=== PATIENT | male | born 2000 | race Caucasian/White ===

== ENCOUNTER 2018-04-10 22:12 | Emergency (ER) | payer OTHER ==
[~2018-04-10] VITALS: Ht 172.7 cm; Wt 93.0 kg
[2018-04-10 22:49] LABS: ABSOLUTE BASOPHILS 0.1 thou/uL (0.0-0.2); ABSOLUTE EOSINOPHILS 0.6 thou/uL (0.0-0.7); ABSOLUTE LYMPHOCYTES 1.5 thou/uL (0.8-5.3); ABSOLUTE MONOCYTES 1.1 thou/uL (0.0-1.2); ABSOLUTE NEUTROPHILS 6.6 thou/uL (1.6-8.1); BASOPHILS 0.7 %; EOSINOPHILS 5.9 %; HEMATOCRIT 43.7 % (42.0-52.0); LYMPHOCYTES 14.9 %; MCH 28.5 pg (26.0-34.0); MCHC 34.4 g/dL (28.0-37.0); MONOCYTES 11.3 %; MPV 7.8 fl. (7.2-11.1); NUCLEATED RBCS 0 /100WBC; PLATELET COUNT* 276 thou/uL (150-400); POLYS 67.2 %; RBC 5.27 mil/uL (4.50-6.00); WBC 9.9 thou/uL (4.0-11.0)
[2018-04-10 22:53] LABS: CALCIUM 9.3 mg/dL (8.5-10.1); POTASSIUM 3.8 mmol/L (3.5-5.1)
[2018-04-10 22:58] LABS: ALBUMIN 4.3 g/dL (3.4-5.0); TOTAL BILIRUBIN 0.5 mg/dL (<0.1-1.0); TOTAL PROTEIN 8.2 g/dL (6.4-8.2)
[2018-04-10] MEDS ORDERED: ZPAK PO (23:33)
[2018-04-10] MEDS ORDERED: VENTOLIN HFA INH8 GM INH (23:54)
[2018-04-11] VITALS: BP 121/80
== END 2018-04-11 00:04 | disposition home or self-care (01) ==
LOC: M.ERS 22:12
PROVIDERS: Nurse Practitioner
DX: R51 Headache (principal); Z90.49 Acquired absence of other specified parts of digestive tract; Z87.891 Personal history of nicotine dependence

== ENCOUNTER 2018-07-24 00:12 | Emergency (ER) | payer OTHER ==
[~2018-07-24] VITALS: Ht 172.7 cm; Wt 96.2 kg
[~2018-07-24 00:12] MED LIST: VENTOLIN HFA INH8 GM INH; ZPAK PO
[2018-07-24 00:20] VITALS: BP 135/72
[2018-07-24] MEDS ORDERED: LIDOCAINE VISC100 ML PO (00:25)
[2018-07-24] MEDS ORDERED: ACETAMINOPHEN-1 EAC1 PO (00:25)
[2018-07-24] MEDS ORDERED: AMOXICILLIN 50500 MG PO (00:25)
[2018-07-24] MEDS ORDERED: IBUPROFEN 800800 MG PO (00:26)
== END 2018-07-24 00:36 | disposition home or self-care (01) ==
LOC: M.ERS 00:12
DX: S02.5XXA Fracture of tooth (traumatic), initial encounter for closed fracture (principal); Z87.891 Personal history of nicotine dependence; Z90.49 Acquired absence of other specified parts of digestive tract; X58.XXXA Exposure to other specified factors, initial encounter; Y93.89 Activity, other specified; Y92.89 Other specified places as the place of occurrence of the external cause; Y99.8 Other external cause status

== ENCOUNTER 2019-01-21 20:30 | Emergency (ER) | payer OTHER ==
[~2019-01-21] VITALS: Ht 172.7 cm; Wt 93.0 kg
[~2019-01-21 20:30] MED LIST changes: +ACETAMINOPHEN-1 EAC1 PO; +AMOXICILLIN 50500 MG PO; +IBUPROFEN 800800 MG PO; +LIDOCAINE VISC100 ML PO
[2019-01-21 20:56] LABS: ABSOLUTE BASOPHILS 0.1 thou/uL (0.0-0.2); ABSOLUTE EOSINOPHILS 0.1 thou/uL (0.0-0.7); ABSOLUTE LYMPHOCYTES 1.1 thou/uL (0.8-5.3); ABSOLUTE MONOCYTES 1.2 thou/uL (0.0-1.2); ABSOLUTE NEUTROPHILS 4.4 thou/uL (1.6-8.1); BASOPHILS 0.8 %; HEMATOCRIT 42.5 % (42.0-52.0); HEMOGLOBIN 14.5 gm/dL (14.0-18.0); LYMPHOCYTES 15.5 %; MCH 28.7 pg (26.0-34.0); MCHC 34.2 g/dL (28.0-37.0); MCV 83.9 fL (80.0-100.0); MONOCYTES 17.5 %; MPV 8.3 fl. (7.2-11.1); NUCLEATED RBCS 0 /100WBC; PLATELET COUNT* 244 thou/uL (150-400); POLYS 64.2 %; RBC 5.07 mil/uL (4.50-6.00); RDW-CV 12.7 % (10.5-14.5); WBC 6.8 thou/uL (4.0-11.0)
[2019-01-21] MEDS ORDERED: ZOFRAN ODT4 MG PO ×3 (21:00→21:08)
[2019-01-21] MEDS ORDERED: IBUPROFEN 600600 M1 PO ×3 (21:00→21:08)
[2019-01-21] MEDS ORDERED: KEFLEX500 M1 PO (21:01)
[2019-01-21 21:09] LABS: ALBUMIN 4.1 g/dL (3.4-5.0); CREATININE 1.3 mg/dL (0.6-1.3); POTASSIUM 3.8 mmol/L (3.5-5.1); TOTAL BILIRUBIN 0.4 mg/dL (<0.1-1.0); TOTAL PROTEIN 7.7 g/dL (6.4-8.2)
[2019-01-21 22:59] VITALS: BP 120/48
== END 2019-01-21 22:59 | disposition home or self-care (01) ==
LOC: M.ERS 20:30
PROVIDERS: Physician Assistant
DX: R51 Headache (principal); J02.9 Acute pharyngitis, unspecified; R11.2 Nausea with vomiting, unspecified; Z90.49 Acquired absence of other specified parts of digestive tract; Z87.891 Personal history of nicotine dependence; Z91.09 Other allergy status, other than to drugs and biological substances